=== PATIENT | male | born 1995 | race Caucasian/White ===

== ENCOUNTER 2023-07-02 15:06 | Emergency (ER) | payer MEDICAID ==
[~2023-07-02] VITALS: Ht 175.3 cm; Wt 79.3 kg
[2023-07-02 15:57] LABS: BASOPHILS % (AUTO) 0.6 % (0-1); EOSINOPHILS # (AUTO) 0.2 X10'3 (0-0.9); EOSINOPHILS % (AUTO) 2.8 % (0-6); HEMATOCRIT 44.2 % (42.0-52.0); HEMOGLOBIN 14.8 g/dl (14.0-17.9); LYMPHOCYTES # (AUTO) 1.5 X10'3 (1.1-4.8); LYMPHOCYTES % (AUTO) 26.3 % (21-51); MEAN CORPUSCULAR HEMOGLOBIN 29.4 PG (27.0-31.0); MEAN CORPUSCULAR HGB CONC 33.6 g/dL (33.0-36.5); MEAN CORPUSCULAR VOLUME 87.6 FL (78-98); MEAN PLATELET VOLUME 6.9 FL (7.4-10.4); MONOCYTES # (AUTO) 0.5 X10'3 (0-0.9); MONOCYTES % (AUTO) 8.4 % (2-12); NEUTROPHILS # (AUTO) 3.5 X10'3 (1.8-7.7); NEUTROPHILS % (AUTO) 61.9 % (42-75); PLATELET COUNT 213 X10'3 (140-440); RED BLOOD COUNT 5.04 X10'6 (4.70-6.10); RED CELL DISTRIBUTION WIDTH 13.8 % (11.5-14.5); WHITE BLOOD COUNT 5.6 X10'3 (4.5-11.0)
[2023-07-02 15:59] LABS: BILIRUBIN,URINE NEGATIVE (Neg); CLARITY,URINE SLIGHTLY CLOUDY (Clear); COLOR,URINE YELLOW (Yellow); GLUCOSE, URINE NEGATIVE (Neg); KETONES,URINE NEGATIVE (Neg); LEUKOCYTE ESTERASE ,URINE NEGATIVE (Neg); NITRITES, URINE NEGATIVE (Neg); OCCULT BLOOD,URINE NEGATIVE (Neg); PH,URINE 6.5 (4.8-8.0); PROTEIN,URINE NEGATIVE (Neg); UROBILINOGEN,URINE 0.2 E.U/dL (0.2-1.0)
[2023-07-02 16:03] LABS: UA COLLECTION TYPE CLN CATCH MIDSTREAM
[2023-07-02 16:10] LABS: BACTERIA,URINE FEW /HPF (Neg); MUCUS STRANDS MANY /LPF (Neg); RBC,URINE 0-2 /HPF (0-2); SQUAMOUS EPITHELIAL CELL,UR FEW /LPF (FEW); WBC,URINE 0-4 /HPF (0-4)
[2023-07-02 16:18] LABS: ALANINE AMINOTRANSFERASE 37 U/L (12-78); ALBUMIN/GLOBULIN RATIO 1.1 (1.1-1.5); ALKALINE PHOSPHATASE 74 IU/L (46-116); ANION GAP 9 (8-16); ASPARTATE AMINO TRANSFERASE 17 U/L (10-37); BILIRUBIN,TOTAL 0.6 MG/DL (0.1-1.0); BLOOD UREA NITROGEN 11 MG/DL (7-18); BUN/CREATININE RATIO 11.7 (10.0-20.0); CHLORIDE 103 MMOL/L (99-107); CREATININE 0.94 MG/DL (0.60-1.10); ETHANOL < 10 MG/DL (<10); GLUCOSE 94 MG/DL (70-104); SALICYLATE 0.3 MG/DL (4.0-20.0); SODIUM 142 MMOL/L (135-145); TOTAL PROTEIN 7.6 G/DL (6.4-8.2); eCRCL 116 ML/MIN; eGFR > 90 ML/MIN
[2023-07-02 16:20] LABS: URINE AMPHETAMINE SCREEN NEGATIVE (Neg); URINE BARBITUATE SCREEN NEGATIVE (Neg); URINE BENZODIAZEPINES SCREEN NEGATIVE (Neg); URINE CANNABINOID SCREEN NEGATIVE (Neg); URINE COCAINE SCREEN NEGATIVE (Neg); URINE METHADONE SCREEN NEGATIVE (Neg); URINE OPIATE SCREEN NEGATIVE (Neg); URINE PHENCYCLIDINE SCREEN NEGATIVE (Neg)
[2023-07-02 16:42] LABS: ACETAMINOPHEN < 2.0 UG/ML (10-30)
[2023-07-02] MEDS ORDERED: OLAN5TAB3 PO (21:03)
[2023-07-02] MEDS ORDERED: CYCL5TAB PO (21:06)
[2023-07-02] MEDS ORDERED: ESCI10TA PO (21:08)
[2023-07-02] MEDS ORDERED: ESCI20TA PO (21:14)
[2023-07-02] MEDS ORDERED: diphenhydrAMINE 25mg capsule PO ONE (23:20)
[2023-07-02] MEDS: OLANZAPINE 5 MG TABLET PO SCH (23:42)
[2023-07-02] MEDS: ESCITALOPRAM 10 mg tablet 10 MG TABLET PO SCH (23:49)
[2023-07-03] MEDS: cyclobenzaprine 10mg tablet PO PRN (15:16)
[2023-07-03 16:16] LABS: THYROID STIMULATING HORMONE 1.63 ulU/ml (0.34-4.50)
[2023-07-03] MEDS: ESCITALOPRAM 10 mg tablet 10 MG TABLET PO SCH (22:04)
[2023-07-03] MEDS: OLANZAPINE 5 MG TABLET PO SCH (22:05)
[2023-07-04] MEDS ORDERED: temazepam 15mg capsule PO ONE (00:05)
[2023-07-04 05:48] VITALS: BP 118/77; TEMP 97.9; O2SAT 99
[2023-07-04 08:00] VITALS: RESP 16
[2023-07-04 08:54] VITALS: PULSE 88
[2023-07-04] MEDS: cyclobenzaprine 10mg tablet PO PRN (11:06)
== END 2023-07-04 15:17 | disposition still patient (30) ==
LOC: ER 15:07
DX: R45.851 Suicidal ideations (principal); Z20.822 Contact with and (suspected) exposure to COVID-19; Z88.8 Allergy status to other drugs, medicaments and biological substances; Z88.6 Allergy status to analgesic agent; Z79.899 Other long term (current) drug therapy
CPT/HCPCS: 36415; 80053; 80305; 80320; 80329; 81001; 84443; 85025; 87811; 99285; Q0163